=== PATIENT | male | born 1975 | race Caucasian/White ===

== ENCOUNTER 2022-09-11 12:47 | Emergency (ER) | payer OTHER | END 2022-09-11 13:21 | disposition left against medical advice (07) | LOC: JP.ED 12:47 | DX: Z53.21 Procedure and treatment not carried out due to patient leaving prior to being seen by health care provider (principal) ==

== ENCOUNTER 2025-09-17 13:06 | Emergency (ER) | payer OTHER ==
[2025-09-17 15:09] LABS: APPEARANCE,URINE CLEAR (CLEAR); GLUCOSE,URINE NEGATIVE (NEGATIVE); OCCULT BLOOD,URINE TRACE-LYSED (NEGATIVE)
[2025-09-17 15:16] LABS: SQUAMOUS EPITHELIAL CELLS,UR NOT SEEN /HPF; UROTHELIAL CELLS,URINE NOT SEEN /HPF
[2025-09-17] MEDS: cefTRIAXone 500 MG, Lidocaine 1% 1 ML IM ONE (17:03)
== END 2025-09-17 17:10 | disposition home or self-care (01) ==
LOC: JP.ED 13:06
DX: M54.41 Lumbago with sciatica, right side (principal); N45.1 Epididymitis; E78.00 Pure hypercholesterolemia, unspecified; K21.9 Gastro-esophageal reflux disease without esophagitis; Z79.899 Other long term (current) drug therapy
CPT/HCPCS: 76870; 81001; 93975; 96372; 99284; J0696; J2003